=== PATIENT | female | born 1980 | race Asian ===

== ENCOUNTER 2023-01-03 07:40 | Day surgery (SDC) | payer BC ==
[2023-01-02 15:34] LABS: HCG,QUAL RESULT NEGATIVE (NEGATIVE)
[~2023-01-03] VITALS: Ht 160 cm; Wt 70.3 kg
[~2023-01-03 07:40] MED LIST: CEFAZOLIN SOD 2 GM in D5W 50 ML IV ONE
[2023-01-03] MEDS ORDERED: CEFAZOLIN 2 GM IVPB PREMIX 50 ML IV ONE (07:57)
[2023-01-03] MEDS ORDERED: MIDAZOLAM HCL 5 MG/ML VIAL (VERSED) IV ONE (10:20)
[2023-01-03] MEDS ORDERED: NS IRRIG SOLN 1000 ML IR ONE (10:20)
[2023-01-03] MEDS ORDERED: DEXAMETHASONE SOD PHOSPHATE 4 MG/ML VIAL ONE (10:20)
[2023-01-03] MEDS ORDERED: fentaNYL CITRATE 250 MCG/5 ML AMP ONE (10:20)
[2023-01-03] MEDS ORDERED: ACETAMINOPHEN I.V. 1000 MG /100 ML IVPB PREMIX IV ONE (10:20)
[2023-01-03] MEDS ORDERED: LR 1,000 ML IV.SOLN IV ONE (10:20)
[2023-01-03] MEDS ORDERED: SEVOFLURANE 15 MIN GAS INH ONE (10:20)
[2023-01-03] MEDS ORDERED: BUPIVACAINE /PF 0.25% 30 ML VIAL INJ ONE (10:20)
[2023-01-03] MEDS ORDERED: LIDOCAINE 1% 10 MG/ML, 20 ML MDV ONE (10:20)
[2023-01-03] MEDS ORDERED: ceFAZolin SODIUM 1 GM VIAL ONE (10:20)
[2023-01-03] MEDS ORDERED: ACETAMINOPHEN I.V. 1000 MG 100 ML IV ONE (10:57)
[2023-01-03] MEDS ORDERED: MEPERIDINE HCL/PF 25 MG/ML DISP.SYRIN IVP PRN (11:00)
[2023-01-03] MEDS ORDERED: LR 1,000 ML IV SCH (11:00)
[2023-01-03] MEDS ORDERED: MIDAZOLAM HCL 2 MG/2 ML VIAL (VERSED) IVP PRN (11:00)
[2023-01-03] MEDS ORDERED: METOCLOPRAMIDE HCL 10 MG/2 ML VIAL IVP PRN (11:00)
[2023-01-03] MEDS ORDERED: HYDROmorphone 1 MG/ML INJ. CARTRIDGE IVP PRN ×2 (11:00)
[2023-01-03 15:20] VITALS: BP_SYST 104
== END 2023-01-03 14:35 | disposition home or self-care (01) ==
LOC: SDS 07:40 → SMU 07:41 → SDS 14:35
PROVIDERS: ATTEND Surgery
DX: R22.2 Localized swelling, mass and lump, trunk (principal); F41.9 Anxiety disorder, unspecified; G43.909 Migraine, unspecified, not intractable, without status migrainosus; Z79.899 Other long term (current) drug therapy; Z20.822 Contact with and (suspected) exposure to COVID-19
CPT/HCPCS: 84703; 87081; 36415; 87426; 11406; 12032; 38500; 77065; 76098; 19285; 88307; 88333; J3490; J0690 ×2; J1100; J2001; J2250; J3010; J7120; J0131